=== PATIENT | female | born 1975 | race Hispanic/Latino ===

== ENCOUNTER 2021-03-09 06:10 | Inpatient (IN) | payer OTHER ==
[2021-03-09] MEDS ORDERED: LORazepam 2 MG/ML VIAL ONE (06:27)
--- NOTE | 2021-03-09 06:48 | Emergency Department Report ---
HPI - General Time Seen by Provider: 03/09/21 06:43 - HPI HPI: This is a 45-year-old female presents to the emergency department via EMS from home with the complaint of progressively worsening shortness of breath that has been going on since last night. EMS found the patient to have hypoxia, as low as the 60s. She would not tolerate any mask, so she was given supple mental O2 via nasal cannula. She was given 125 mg of Solu-Medrol, 5 mg of albuterol and she was receiving magnesium upon arrival. The patient is a tobacco smoker. No diagnosed past medical history but does not follow with a primary care physician. No fever, lower extremity swelling, chest pain, nausea, vomiting, but the patient does have diaphoresis. She says that she is vaccinated against COVID-19. No recent travel or sick contacts at home. ED Past Medical Hx - Medications Home Medications: Home Medications Medication Instructions Recorded Confirmed Last Taken Type No Known Home Medications [No 03/09/21 03/09/21 Unknown History Reported Home Medications] ED Review of Systems ROS: Stated complaint: SOB Other details as noted in HPI Comment: All other systems reviewed and negative Constitutional: diaphoresis. denies: fever Eyes: denies: eye pain, vision change Respiratory: cough, orthopnea, shortness of breath, SOB with exertion, SOB at rest, wheezing Cardiovascular: denies: chest pain, edema Gastrointestinal: denies: abdominal pain, vomiting Genitourinary: denies: dysuria, discharge Musculoskeletal: denies: back pain, arthralgia Skin: denies: rash, lesions Neurological: denies: headache, weakness Physical Exam - Physical Exam Physical Exam: GENERAL: The patient is ill-appearing. HENT: Normocephalic. Atraumatic. Patient has moist mucous membranes. EYES: Extraocular motions are intact. NECK: Supple. Trachea is midline. CHEST/LUNGS: Coarse breath sounds and rhonchi heard bilaterally. There is tachypnea, accessory muscle use and conversational dyspnea. There is respiratory distress noted. HEART/CARDIOVASCULAR: Regular. There is mild to moderate tachycardia. There is no murmur. ABDOMEN: Abdomen is soft, nontender. Patient has normal bowel sounds. There is no abdominal distention. SKIN: Skin is warm and dry. NEURO: The patient is awake, alert, and oriented. The patient is cooperative. The patient has no focal neurologic deficits. MUSCULOSKELETAL: There is no tenderness or deformity. There is no limitation range of motion. ED Course - Reevaluation(s) Reevaluation #1: 03/09/21 06:46 When patient arrived we placed a peripheral IV and the patient was given a dose of Ativan. We were able to move from receiving a nebulizer breathing treatment from an apparatus that she puts in her mouth, to a nebulized treatment via mask, to a BiPAP machine. Currently the patient has an oxygen saturation in the high 90s, remains tachycardic, and has tachypnea but it is greatly improved. I spoke to the patient regarding CODE STATUS and the patient says that she can be intubated if it would save her life. I spoke to the patient and let her know that if the BiPAP is not tolerable or fails for some reason then the next step is intubation. ED Medical Decision Making - Lab Data Result diagrams: 03/09/21 06:46 03/09/21 06:46 Labs 03/09/21 03/09/21 03/09/21 06:46 06:46 06:46 WBC 19.1 H RBC 3.86 Hgb 11.4 Hct 35.3 MCV 91 MCH 30 MCHC 32 RDW 13.8 Plt Count 255 Lymph % (Auto) 14.6 [place] % (Auto) 3.8 Eos % (Auto) 0.5 Baso % (Auto) 0.7 Lymph # (Auto) 2.8 [place] # (Auto) 0.7 Eos # (Auto) 0.1 Baso # (Auto) 0.1 Seg Neutrophils % 80.4 H Seg Neutrophils # 15.4 H PT 13.9 INR 1.02 D-Dimer 648.24 H Sodium 139 Potassium 3.3 L Chloride 101.3 Carbon Dioxide 18 L Anion Gap 23 BUN 24 H Creatinine 2.7 H Estimated GFR 19 BUN/Creatinine Ratio 9 Glucose 444 H Calcium 9.0 Total Bilirubin 0.50 AST 20 ALT 18 Alkaline Phosphatase 120 Troponin T 0.258 H* NT-Pro-B Natriuret Pep 9798 H Total Protein 7.2 Albumin 3.8 L Albumin/Globulin Ratio 1.1 Triglycerides 104 Cholesterol 210 H LDL Cholesterol Direct 157 H HDL Cholesterol 42 Cholesterol/HDL Ratio 5.00 - EKG Data -: EKG Interpreted by Me EKG shows normal: sinus rhythm, axis, intervals, QRS complexes (LVH), ST-T waves Rate: tachycardia (112 bpm) - EKG Data When compared to previous EKG there are: previous EKG unavailable Interpretation: other (Sinus tachycardia 112 bpm, normal axis, normal intervals, LVH. No ST elevation DE) - Radiology Data Radiology results: report reviewed CHEST 1 VIEW INDICATION: SOB. COMPARISON: None FINDINGS: Support devices: None. Heart: Within normal limits. Lungs/Pleura: There are patchy lower lung airspace densities, more so at the left lung base. Small left pleural effusion is identified. No pneumothorax. Additional findings: Approximate 3 cm enchondroma in the right humeral neck is noted. IMPRESSION: Lower lung airspace opacities and small left pleural effusion. Atypical pneumonia or viral infection is not ex cluded. - Medical Decision Making This patient presents to the emergency department in respiratory distress with tachypnea, conversational dyspnea and accessory muscle use. There are rhonchi and coarse breath sounds heard on auscultation. Initially the patient would not tolerate anything more than a nasal cannula. We placed an IV and gave the patient a dose of Ativan. We were able to escalate the support up to a mask with nebulizing treatment, a nonrebreather, and then a BiPAP machine. Once the patient was on BiPAP she appeared improved and oxygen went up into the high 90s and respiratory rate and work of breathing decreased. Chest x-ray shows bilateral patchy opacities concerning for pneumonia versus interstitial edema. Patient's labs are very abnormal including a leukocytosis of 19,000, hyperglycemia with a blood sugar of about 450, acute renal failure, elevated troponin, elevated D-dimer level. EKG did not have any morphology consistent with ST elevation myocardial infarction. Patient was given insulin for the hyperglycemia. She was covered with IV antibiotics and blood cultures have been sent. Patient later had a ventilation perfusion scan that was negative for pulmonary embolism. Patient will be admitted to the [facility] and was accepted for admission by the hospitalist service. Critical Care Time: Yes Critical care time in (mins) excluding proc time.: 40 Critical care attestation.: If time is entered above; I have spent that time in minutes in the direct care of this critically ill patient, excluding procedure time. Critical care time was spent on this patient during her initial evaluation, multiple reevaluations, ordering and interpretation of labs and imaging, IV insulin for hyperglycemia, BiPAP management for her hypoxia and respiratory distress, and multiple discussions with the patient. Critical Care Time: 40 minutes ED Disposition Clinical Impression: Acute hypoxemic respiratory failure, Diabetes mellitus, new onset, Hyperglycemia, Acute renal failure, Elevated troponin Disposition: OP ADMIT IP TO THIS HOSP Is pt being admited?: Yes Condition: Serious Time of Disposition: 08:34
[2021-03-09] MEDS ORDERED: LORazepam 2 MG/ML VIAL IV ONE (07:10)
[2021-03-09 07:34] LABS: Basophils # (Auto) 0.1 K/mm3 (0.0-0.1); Basophils % (Auto) 0.7 % (0.0-1.8); Eosinophils # (Auto) 0.1 K/mm3 (0.0-0.4); Eosinophils % (Auto) 0.5 % (0.0-4.3); Hematocrit 35.3 % (30.3-42.9); Hemoglobin 11.4 gm/dl (10.1-14.3); Lymphocytes # (Auto) 2.8 K/mm3 (1.2-5.4); Lymphocytes % (Auto) 14.6 % (13.4-35.0); Mean Corpuscular HGB Conc 32 % (30-34); Mean Corpuscular Volume 91 fl (79-97); Monocytes # (Auto) 0.7 K/mm3 (0.0-0.8); Monocytes % (Auto) 3.8 % (0.0-7.3); Platelet Count 255 K/mm3 (140-440); Red Blood Count 3.86 M/mm3 (3.65-5.03); Red Cell Distribution Width 13.8 % (13.2-15.2)
[2021-03-09 07:44] LABS: INR 1.02 (0.87-1.13)
[2021-03-09] MEDS ORDERED: AZITHROMYCIN/NS 500 MG/250 ML 500 MG/250 ML BAG IV ONE (07:44)
[2021-03-09] MEDS ORDERED: cefTRIAXone/NS 1 GM/50 ML 1 GM/50 ML BAG IV ONE (07:44)
--- NOTE | 2021-03-09 07:45 | XRay Report ---
CHEST 1 VIEW INDICATION: SOB. COMPARISON: None FINDINGS: Support devices: None. Heart: Within normal limits. Lungs/Pleura: There are patchy lower lung airspace densities, more so at the left lung base. Small le ft pleural effusion is identified. No pneumothorax. Additional findings: Approximate 3 cm enchondroma in the right humeral neck is noted. IMPRESSION: Lower lung airspace opacities and small left pleural effusion. Atypical pneumonia or viral infection is not excluded. Signer Name: Seth Stewart Jr, MD Signed: 03/09/2021 7:41 AM Workstation Name: [id number]
[2021-03-09 07:51] LABS: Albumin 3.8 g/dL (3.9-5)
[2021-03-09] MEDS ORDERED: INSULIN REGULAR, HUMAN 100 UNITS/1 ML IV ONE (07:56)
[2021-03-09] MEDS: POTASSIUM CHLORIDE 10 MEQ 10 MEQ/100 ML BAG IV SCH ×2 (08:33→09:47)
[2021-03-09 09:07] LABS: ABG Base Excess -7.5 mmol/L (-2.0-3.0); ABG HCO3 17.7 mmol/L (20.0-26.0); ABG Methemoglobin 0.5 % (0.0-1.5); ABG Oxygen Saturation 99.5 % (95.0-99.0); ABG PCO2 34.8 mm Hg; ABG PH 7.324 pH Units (7.350-7.450)
[2021-03-09 09:10] LABS: ABG PO2 298.4 mm Hg (80.0-90.0)
--- NOTE | 2021-03-09 09:47 | History and Physical Report ---
History of Present Illness Date of examination: 03/09/21 Date of admission: 03/09/2021 Chief complaint: Worsening shortness of breath for the last 2 3 days worse since last night History of present illness: 45-year-old female patient with no significant past medical history except for ongoing tobacco use presented to the emergency room with worsening shortness of breath of 2 to 3 days duration worse since last night, as per ER note patient was found to be in severe hypoxia with O2 sats in 60s Patient received supplemental oxygen via nasal cannula , high-dose Solu-Medrol, magnesium and albuterol nebulizer. Patient has ongoing tobacco use for many years, does not see any physician, not on any medications Initial evaluation in the ED , show severe hypoxemia requiring BiPAP, very high blood sugars, acute kidney injury, elevated BNP and positive troponins Patient's oxygen saturations slowly but gradually improved, currently on Ventimask saturating more than 95% Patient complains of shortness of breath intermittent Denies chest pain Denies nausea vomiting or abdominal pain Patient denies having the symptoms in the past Denies orthopnea or paroxysmal nocturnal dyspnea Chest x-ray bilateral basilar opacities/pneumonia versus CHF Elevated D-dimers, VQ scan low probability for PE. Past History Past Medical History: No medical history, other (Patient denies any medical history). denies: diabetes, hypertension Past Surgical History: No surgical history, Other (Denies any surgical history) Social history: smoking. denies: alcohol abuse, prescription drug abuse Family history: hypertension Medications and Allergies Allergies Allergy/AdvReac Type Severity Reaction Status Date / Time No Known Allergies Allergy Verified 03/09/21 06:48 Home Medications Medication Instructions Recorded Confirmed Last Taken Type No Known Home Medications [No 03/09/21 03/09/21 Unknown History Reported Home Medications] Active Meds: Active Medications Potassium Chloride (Kcl 10meq/100ml) 10 meq in 100 mls @ 100 mls/hr IV Q1H SHAKIRA Stop: 03/09/21 10:59 Last Admin: 03/09/21 08:33 Dose: 100 mls/hr Documented by: Review of Systems Constitutional: weakness, other (Shortness of breath), no weight loss, no weight gain, no fever, no chills Ears, nose, mouth and throat: no nasal congestion, no nasal discharge Cardiovascular: edema, shortness of breath, dyspnea on exertion, no chest pain, no orthopnea, no palpitations Respiratory: shortness of breath, no cough, no hemoptysis Gastrointestinal: no abdominal pain, no nausea, no vomiting Genitourinary Female: no flank pain, no dysuria Musculoskeletal: no myalgias, no arthritis Integumentary: no rash, no lesions Neurological: no paralysis, no weakness, no parathesias Psychiatric: no anxiety, no depression Endocrine: no cold intolerance, no heat intolerance, no polydipsia, no polyuria Hematologic/Lymphatic: no easy bruising, no easy bleeding Allergic/Immunologic: no urticaria, no allergic rhinitis Exam - Constitutional Vitals: Temp Pulse Resp BP Pulse Ox 123 H 34 H 209/92 70 L 03/09/21 06:51 03/09/21 06:51 03/09/21 06:51 03/09/21 06:51 General appearance: Present: mild distress, well-nourished, obese - EENT Eyes: Present: PERRL, EOM intact - Neck Neck: Present: supple, normal ROM - Respiratory Respiratory effort: normal Respiratory: bilateral: diminished, rales, negative: rhonchi, wheezing - Cardiovascular Rhythm: regular Heart Sounds: Present: S1 & S2 - Extremities Extremities: no ischemia Extremity abnormal: edema (Trace edema) - Abdominal General gastrointestinal: Present: soft, non-tender, non-distended, normal bowel sounds - Integumentary Integumentary: Present: clear, warm - Musculoskeletal Musculoskeletal: strength equal bilaterally - Psychiatric Psychiatric: appropriate mood/affect, cooperative - Neurologic Neurologic: CNII-XII intact, moves all extremities HEART Score - HEART Score Troponin: Troponin T 0.258 ng/mL (0.00-0.029) H* 03/09/21 06:46 Results - Labs CBC & Chem 7: 03/09/21 06:46 03/09/21 06:46 Labs: Abnormal lab results 03/09/21 03/09/21 03/09/21 Range/Units 06:46 06:46 06:46 WBC 19.1 H (4.5-11.0) K/mm3 Seg Neutrophils % 80.4 H (40.0-70.0) % Seg Neutrophils # 15.4 H (1.8-7.7) K/mm3 D-Dimer 648.24 H (0-234) ng/mlDDU ABG pH (7.350-7.450) pH Units ABG pO2 (80.0-90.0) mm Hg ABG HCO3 (20.0-26.0) mmol/L ABG O2 Saturation (95.0-99.0) % ABG Base Excess (-2.0-3.0) mmol/L ABG Hemoglobin (12.0-16.0) gm/dl Potassium 3.3 L (3.6-5.0) mmol/L Carbon Dioxide 18 L (22-30) mmol/L BUN 24 H (7-17) mg/dL Creatinine 2.7 H (0.6-1.2) mg/dL Glucose 444 H (65-100) mg/dL Troponin T 0.258 H* (0.00-0.029) ng/mL NT-Pro-B Natriuret Pep 9798 H (0-450) pg/mL Albumin 3.8 L (3.9-5) g/dL Cholesterol 210 H (50-199) mg/dL LDL Cholesterol Direct 157 H (50-130) mg/dL 03/09/21 Range/Units 09:04 WBC (4.5-11.0) K/mm3 Seg Neutrophils % (40.0-70.0) % Seg Neutrophils # (1.8-7.7) K/mm3 D-Dimer (0-234) ng/mlDDU ABG pH 7.324 L (7.350-7.450) pH Units ABG pO2 298.4 H (80.0-90.0) mm Hg ABG HCO3 17.7 L (20.0-26.0) mmol/L ABG O2 Saturation 99.5 H (95.0-99.0) % ABG Base Excess -7.5 L (-2.0-3.0) mmol/L ABG Hemoglobin 11.2 L (12.0-16.0) gm/dl Potassium (3.6-5.0) mmol/L Carbon Dioxide (22-30) mmol/L BUN (7-17) mg/dL Creatinine (0.6-1.2) mg/dL Glucose (65-100) mg/dL Troponin T (0.00-0.029) ng/mL NT-Pro-B Natriuret Pep (0-450) pg/mL Albumin (3.9-5) g/dL Cholesterol (50-199) mg/dL LDL Cholesterol Direct (50-130) mg/dL Assessment and Plan --Acute hypoxic respiratory failure; requiring BiPAP Probably secondary pneumonia versus CHF or both Oxygen titrate O2 sats to more than 90% Treat the underlying cause empiric antibiotics Bronchodilators and supportive care --Non-ST elevation FL; Serial cardiac enzymes, serial EKG Echocardiogram for LV function ejection fraction --Elevated BNP; possible CHF Unknown ejection fraction, echocardiogram Cardiology evaluation if needed --New onset diabetes mellitus;/hyperglycemia Accu-Chek sliding scale coverage ADA diet Long-acting insulin Novolin 70/30 A1c 7.8 Diabetic education, diabetic diet education Home health nurse on discharge for disease monitoring --Obesity; BMI 34.8 Patient needs weight reduction when medically stable Outpatient pulmonary evaluation/sleep study to evaluate for BERTRAND --Elevated D-dimers; VQ scan low probability for PE Check lower extremity venous Doppler to evaluate for DVT Continue supportive care --PUI/isolation, check sinha PCr --Acute kidney injury; secondary to ATN Partly vasomotor nephropathy, gentle hydration Monitor renal function, avoid nephrotoxins Nephrology consult --Leukocytosis; Secondary to underlying pneumonia Continue antibiotics and follow cultures --Ongoing tobacco use; Smoking cessation counseling done, extensively advised risks and consequences of long-term smoking advised the patient and strongly advised to quit Advised nicotine patch as needed --DVT prophylaxis; Lovenox We will closely monitor patient and adjust the management as needed
[2021-03-09] MEDS ORDERED: INSULIN LISPRO 100 UNIT/ML SUB-Q NR (09:50)
[2021-03-09] MEDS ORDERED: ALBUTEROL 2.5 MG/3 ML NEBU IH PRN (12:00)
--- NOTE | 2021-03-09 13:05 | Nuclear Medicine Report ---
NUCLEAR MEDICINE PERFUSION SCAN INDICATION: SOB, elevated dimer CORRELATION: AP chest performed earlier today RADIOPHARMACEUTICAL: Perfusion: 5.3 mCi Tc-99m MAA given IV FINDINGS: Perfusion images show symmetric and uniform radiotracer distribution throughout bilateral lung zones with no evidence of unmatched segmental perfusion defects. Normal cardiac silhouette. IMPRESSION: Low probability perfusion scan for pulmonary embolism. Signer Name: Seth Stewart Jr, MD Signed: 03/09/2021 1:00 PM Workstation Name: [id number]
[2021-03-09] MEDS ORDERED: FUROSEMIDE 40 MG/4 ML INJ IV SCH (14:00)
[2021-03-09] MEDS ORDERED: SODIUM CHLORIDE 0.9% 1000 ML 1,000 ML IV SCH (14:00)
[2021-03-09] MEDS ORDERED: METOPROLOL TARTRATE 25 MG TAB PO SCH (14:00)
[2021-03-09] MEDS ORDERED: INSULIN NPH/REGULAR 70/30 INJ SUB-Q ONE (14:22)
[2021-03-09] MEDS: INSULIN NPH/REGULAR 70/30 INJ SUB-Q SCH ×2 (14:28→20:16)
--- NOTE | 2021-03-09 15:37 | Consultation ---
History of Present Illness Consult date: 03/09/21 Requesting physician: RICHARD PLAZA Consult reason: elevated troponin History of present illness: This patient is a 45-year-old female with a significant history of tobacco use (half pack per day). She is previously unknown to our practice and is not followed by cardiology or primary care. Patient presents to [facility] ER via EMS after acute shortness of breath. EMS reports initial SPO2 of 60%. Patient was subsequently treated with CPAP, magnesium gtt. on presentation to ED patient was also found to have hypertensive urgency (209/90) blood glucose 450, elevated D-dimer, elevated BNP, elevated creatinine, elevated troponin. Shortness of breath occurred acutely this a.m. Patient denies orthopnea or PND. Cardiology is consulted for elevated troponins. At time of interview patient has significant relief of shortness of breath and is only requiring supplemental O2 via nasal cannula. Patient denies any chest pain, weakness, dizziness, abdominal pain, nausea/vomiting/diarrhea, recent illness or known exposure. Patient also denies any EtOH or drug use. Patient takes no home medications and is not followed by any physicians and takes no home medications. She denies previous hospitalizations or surgeries. Patient specifically denies any history of prior [place], cardiomyopathy, pulmonary embolism, CVA, DVT, kidney or liver pathology. Of note patient has received [employer] Covid vaccine on 02/16/2021. D-dimer is elevated. VQ scan is low probability for PTE. Past History Past Medical History: No medical history, other (See HPI) Past Surgical History: No surgical history, Other (Denies any surgical history) Social history: smoking. denies: alcohol abuse, prescription drug abuse Family history: hypertension Medications and Allergies Allergies Allergy/AdvReac Type Severity Reaction Status Date / Time No Known Allergies Allergy Verified 03/09/21 06:48 Home Medications Medication Instructions Recorded Confirmed Last Taken Type No Known Home Medications [No 03/09/21 03/09/21 Unknown History Reported Home Medications] Active Meds: Active Medications Albuterol (Albuterol 2.5 Mg/3 Ml Nebu) 2.5 mg IH Q4HRT PRN PRN Reason: Shortness Of Breath Aspirin (Aspirin Ec 325 Mg Tab) 325 mg PO QDAY SHAKIRA Atorvastatin Calcium (Atorvastatin 20 Mg Tab) 20 mg PO QHS SHAKIRA Furosemide (Furosemide 40 Mg/4 Ml Inj) 40 mg IV ONCE SHAKIRA Stop: 03/09/21 17:00 Furosemide (Furosemide 40 Mg/4 Ml Inj) 40 mg IV QDAY [facility] Azithromycin (Zithromax/Ns) 500 mg in 250 mls @ 250 mls/hr IV Q24H [facility] Ceftriaxone Sodium (Rocephin/Ns 1 Gm/50 Ml) 1 gm in 50 mls @ 100 mls/hr IV Q24H [facility]; Protocol Insulin Human Isoph/Insulin Regular (Insulin Nph/Regular 70/30 Inj) 10 unit SUB-Q BIDDIAB [facility] Last Admin: 03/09/21 14:28 Dose: 10 unit Documented by: Metoprolol Tartrate (Metoprolol Tartrate 25 Mg Tab) 12.5 mg PO BID [facility] Last Admin: 03/09/21 14:50 Dose: 12.5 mg Documented by: Nicotine (Nicotine 14 Mg/24 Hr Patch) 14 mg TD QDAY [facility] Review of Systems Constitutional: no weight loss, no weight gain, no fever, no chills, no sweats, no night sweats, no fatigue, no weakness, no malaise, no lethargy Ears, nose, mouth and throat: no ear pain, no ear discharge, no nose pain, no nasal congestion, no nasal discharge Cardiovascular: shortness of breath, no chest pain, no orthopnea, no palpitations, no rapid/irregular heart beat, no edema, no syncope, no li ghtheadedness, no dyspnea on exertion, no paroxysmal nocturnal dyspnea, no claudication, no high blood pressure, no leg edema Respiratory: shortness of breath, no cough, no cough with sputum, no hemoptysis, no dyspnea on exertion Gastrointestinal: no abdominal pain, no nausea, no vomiting, no diarrhea, no constipation, no change in bowel habits Genitourinary Female: no pelvic pain, no flank pain, no urinary frequency Musculoskeletal: no neck stiffness, no neck pain, no shooting arm pain, no arm numbness/tingling, no low back pain, no shooting leg pain Integumentary: no rash, no pruritis, no redness, no sores, no wounds Neurological: no head injury, no paralysis, no weakness, no parathesias, no numbness, no tingling, no seizures, no syncope Psychiatric: no anxiety Endocrine: no cold intolerance, no heat intolerance Hematologic/Lymphatic: no easy bruising, no easy bleeding Allergic/Immunologic: no urticaria Physical Examination Last Vital Signs Temp Pulse 103 H 03/09/21 14:50 Resp 21 03/09/21 12:16 BP 162/91 03/09/21 14:50 Pulse Ox 100 03/09/21 12:16 General appearance: mild distress HEENT: Positive: PERRL, Normocephaly, Mucus Membranes Moist Neck: Positive: neck supple, trachea midline Cardiac: Positive: Regular Rhythm, S1/S2 Lungs: Positive: Decreased Breath Sounds Neuro: Positive: Grossly Intact Abdomen: Positive: Unremarkable, Soft Skin: Negative: Rash, Wound Extremities: Present: upper extr. pulses, lower extr. pulses, edema (Trace bilateral lower extremity edema) Results 03/09/21 06:46 03/09/21 06:46 Cardiac Enzymes 03/09/21 Range/Units 06:46 AST 20 (5-40) units/L Coagulation 03/09/21 Range/Units 06:46 PT 13.9 (12.2-14.9) Sec. INR 1.02 (0.87-1.13) Lipids 03/09/21 Range/Units 06:46 Triglycerides 104 (2-149) mg/dL Cholesterol 210 H (50-199) mg/dL HDL Cholesterol 42 (40-59) mg/dL Cholesterol/HDL Ratio 5.00 % CBC 03/09/21 Range/Units 06:46 WBC 19.1 H (4.5-11.0) K/mm3 RBC 3.86 (3.65-5.03) M/mm3 Hgb 11.4 (10.1-14.3) gm/dl Hct 35.3 (30.3-42.9) % Plt Count 255 (140-440) K/mm3 Lymph # (Auto) 2.8 (1.2-5.4) K/mm3 [place] # (Auto) 0.7 (0.0-0.8) K/mm3 Eos # (Auto) 0.1 (0.0-0.4) K/mm3 Baso # (Auto) 0.1 (0.0-0.1) K/mm3 Comprehensive Metabolic Panel 03/09/21 Range/Units 06:46 Sodium 139 (137-145) mmol/L Potassium 3.3 L (3.6-5.0) mmol/L Chloride 101.3 (98-107) mmol/L Carbon Dioxide 18 L (22-30) mmol/L BUN 24 H (7-17) mg/dL Creatinine 2.7 H (0.6-1.2) mg/dL Glucose 444 H (65-100) mg/dL Calcium 9.0 (8.4-10.2) mg/dL AST 20 (5-40) units/L ALT 18 (7-56) units/L Alkaline Phosphatase 120 (35-129) units/L Total Protein 7.2 (6.3-8.2) g/dL Albumin 3.8 L (3.9-5) g/dL - Imaging and Cardiology Echo: pending EKG: report reviewed, image reviewed EKG interpretations - Telemetry EKG Rhythm: Sinus Tachycardia - EKG Sinus rhythms and dysrhythmias: sinus tachycardia Assessment and Plan Acute respiratory failure with hypoxia * D-dimer is elevated, VQ scan has low suspicion for PTE * Leukocytosis. Patient received [employer] vaccine on 02/16/2021. Patient is admitted as a Covid PUI, PCR is pending. Blood cultures, procalcitonin is pending. Patient has been started on empiric antibiotics. * CXR reviewed: Mild pulmonary edema. Agree with Lasix 40 mg IV daily pending nephrology recommendations. NSTEMI suspect type II in setting of JOSE R and hyperglycemia * Patient denies any chest pain. Twelve-lead reviewed sinus tach 112 with suspected LVH, no acute ischemic changes. Troponin is elevated x1. Continue to trend CE's * Echocardiogram is pending * Will plan for ischemic eval once patient is hemodynamically stabilized. * Initiate ASA 325 mg daily, atorvastatin 80 mg nightly. * Optimize antihypertensive regimen: Initiate metoprolol 25 mg twice daily. No KRUNAL/ARB in setting of JOSE R. Tobacco use * Cessation encouraged DVT prophylaxis * Heparin SQ We will follow This patient was seen in conjunction with Dr Vann who agrees with this assessment and plan of care - Patient Problems (1) Acute kidney injury Current Visit: Yes Status: Acute (2) NSTEMI (non-ST elevated myocardial infarction) Current Visit: Yes Status: Acute (3) Tobacco use Current Visit: Yes Status: Chronic (4) Leukocytosis Current Visit: Yes Status: Acute (5) Acute hypoxemic respiratory failure Current Visit: Yes Status: Acute (6) Hyperglycemia Current Visit: Yes Status: Acute
[2021-03-09] MEDS: ASPIRIN EC 325 MG TAB PO SCH (16:12)
--- NOTE | 2021-03-09 16:54 | Progress Note ---
Assessment and Plan 1. Acute kidney injury vs CKD: Patient presented with elevated creatinine level. Baseline renal function is unknown. Urine studies and Renal US ordered. Monitor renal function. Renal prognosis is guarded. Avoid nephrotoxic agents. Meds dosage based on GFR. 2. FEN: Hypokalemia, replete K. Metabolic acidosis, monitor. Monitor lytes. 3. Acute respiratory failure with hypoxia: Pneumonia or CHF or both. Elevated D-dimer, VQ scan low probability for PE. Requiring BiPAP. Covid test ordered. Empiric antibiotics, bronchodilators and supportive care. 4. Non-ST elevation [place]: Trend Troponin. Echocardiogram for LV function ejection fraction. Cards consulted. 5. New onset diabetes mellitus / hyperglycemia: Accu-Chek, SSI, Long-acting insulin Novolin 70/30. A1c 7.8. ADA diet. 6. Uncontrolled Hypertension: Monitor BP. Adjust meds. Subjective: Patient was not examined today. However the examination findings from other providers noted. The current and previous medical records are reviewed in detail as are laboratory and imaging data reviewed when appropriate. Medications being given are also reviewed. In addition the case has been discussed with the attending hospitalist and the nurse when needed. New renal recommendations as above. Examination: Subjective Date of service: 03/09/21 Interval history: HPI: The patient is a 45 YO female patient with history significant for ongoing tobacco use who presented to [facility] ED with worsening shortness of breath of 2 to 3 days duration worse since last night. Pt denies chest pain, nausea, vomiting, abdominal pain, orthopnea or PND. She was found to be in severe hypoxia with O2 sats in 60s. Patient received supplemental oxygen, high-dose So herrera-Medrol, magnesium and albuterol nebulizer. Patient has not seen any physician and not on any medication. Initial evaluation in the ED showed severe hypoxemia requiring BiPAP, very high blood sugars, acute kidney injury, elevated BNP and elevated troponins. Chest x-ray showed bilateral basilar opacities/pneumonia versus CHF and VQ scan showed low probability for PE. Nephrology was consulted for evaluation and treatment of JOSE R. Objective - Vital Signs Vital signs: Vital Signs - 12hr 03/09/21 03/09/21 03/09/21 06:24 06:30 06:45 Pulse Rate 134 H 130 H Respiratory 35 H 35 H Rate Blood Pressure 189/108 209/92 O2 Sat by Pulse 72 L 72 L 90 Oximetry 03/09/21 03/09/21 03/09/21 06:51 07:00 07:30 Pulse Rate 123 H 117 H 109 H Respiratory 34 H 33 H 31 H Rate Blood Pressure 209/92 209/92 170/97 O2 Sat by Pulse 70 L 100 100 Oximetry 03/09/21 03/09/21 03/09/21 08:20 09:00 09:30 Pulse Rate 105 H 113 H 108 H Respiratory 29 H 23 28 H Rate Blood Pressure 170/131 166/75 156/80 O2 Sat by Pulse 100 100 100 Oximetry 03/09/21 03/09/21 03/09/21 11:00 11:30 12:16 Pulse Rate 99 H 104 H 100 H Respiratory 23 27 H 21 Rate Blood Pressure 166/87 163/91 163/83 O2 Sat by Pulse 100 100 100 Oximetry 03/09/21 14:50 Pulse Rate 103 H Respiratory Rate Blood Pressure 162/91 O2 Sat by Pulse Oximetry - Lab 03/09/21 06:46 03/09/21 06:46 Most recent lab results ABG pH 7.324 pH Units (7.350-7.450) L 03/09/21 09:04 ABG pCO2 34.8 mm Hg 03/09/21 09:04 ABG pO2 298.4 mm Hg (80.0-90.0) H 03/09/21 09:04 ABG HCO3 17.7 mmol/L (20.0-26.0) L 03/09/21 09:04 ABG O2 Saturation 99.5 % (95.0-99.0) H 03/09/21 09:04 Calcium 9.0 mg/dL (8.4-10.2) 03/09/21 06:46 Medications & Allergies - Medications Allergies/Adverse Reactions: Allergies No Known Allergies Allergy (Verified 03/09/21 06:48) Home Medications: Home Medications Medication Instructions Recorded Confirmed Last Taken Type No Known Home Medications [No 03/09/21 03/09/21 Unknown History Reported Home Medications] Active Medications: Generic Name Dose Route Start Last Admin Trade Name Freq PRN Reason Stop Dose Admin Albuterol 2.5 mg 03/09/21 12:00 Albuterol 2.5 Mg/3 Ml Nebu IH Q4HRT PRN Shortness Of Breath Aspirin 325 mg 03/09/21 15:00 07/07/21 16:12 Aspirin Ec 325 Mg Tab PO 325 mg QDAY SHAKIRA Administration Atorvastatin Calcium 80 mg 03/09/21 22:00 Atorvastatin 40 Mg Tab PO QHS SHAKIRA Furosemide 40 mg 03/09/21 14:00 Furosemide 40 Mg/4 Ml Inj IV 03/09/21 17:00 ONCE SHAKIRA Furosemide 40 mg 03/10/21 10:00 Furosemide 40 Mg/4 Ml Inj IV QDAY [facility] Azithromycin 500 mg in 250 mls @ 250 mls/hr 03/10/21 08:00 Zithromax/Ns IV Q24H [facility] Ceftriaxone Sodium 1 gm in 50 mls @ 100 mls/hr 03/10/21 10:00 Rocephin/Ns 1 Gm/50 Ml IV Q24H [facility] Protocol Insulin Human Isoph/Insulin Regular 10 unit 03/09/21 14:30 03/09/21 14:28 Insulin Nph/Regular 70/30 Inj SUB-Q 10 unit BIDDIAB SHAKIRA Administration Metoprolol Tartrate 25 mg 03/09/21 16:58 Metoprolol Tartrate 25 Mg Tab PO BID SHAKIRA Nicotine 14 mg 03/10/21 10:00 Nicotine 14 Mg/24 Hr Patch TD QDAY SHAKIRA
[2021-03-09] MEDS: METOPROLOL TARTRATE 25 MG TAB PO SCH ×2 (17:22→23:02)
--- NOTE | 2021-03-09 18:06 | Electrocardiograph Report ---
[facility] Test Date: 2021-03-09 Test Time: 07:23:05 Pat Name: RONEL MONROY Department: Room: [facility] Gender: F Java Sql Developer: EM : 1975 Requested By: MARIO LEAL Order Number: [id number] Reading MD: David Ramirez Measurements Intervals Kress Rate: 112 P: 54 DC: 144 QRS: 31 QRSD: 77 T: 162 QT: 356 QTc: 486 Interpretive Statements Sinus tachycardia Probable LVH with secondary repol abnrm No previous ECG available for comparison Electronically Signed On 03-09-2021 18:06:14 EDT by David Ramirez
[2021-03-09] MEDS: INSULIN LISPRO 100 UNIT/ML SUB-Q SCH ×2 (19:03→23:03)
[2021-03-09] MEDS ORDERED: carvediloL 6.25 MG TAB PO SCH (22:00)
--- NOTE | 2021-03-10 07:40 | Progress Note ---
Assessment and Plan Assessment and plan: Today's labs are not done yet, we will follow the labs when available --Acute hypoxic respiratory failure; requiring BiPAP: BiPAP on admission ,probably secondary pneumonia versus CHF or both Oxygen titrate O2 sats to more than 90% Significantly improved, treat the underlying cause. Home O2 evaluation at discharge --Non-ST elevation IL: Serial cardiac enzymes, serial EKG Echocardiogram for LV function ejection fraction Cardiology evaluation noted and appreciated Continue aspirin, beta-blockers, nitrates and statins --Possible CHF: Unknown ejection fraction, follow echocardiogram for LV function Diuretics and beta-blockers, input output monitoring Low-sodium diet and fluid restriction --New onset diabetes mellitus: Accu-Chek sliding scale coverage ADA diet Long-acting insulin Novolin 70/30 A1c 7.8 Uncontrolled, increase Novolin 70/30 to 14 units twice a day Diabetic education, diabetic diet education Home health nurse on discharge for disease monitoring. --Dyslipidemia: Low-cholesterol diet, statin Exercise and weight reduction -Obesity; BMI 34.8: Patient needs weight reduction when medically stable Outpatient pulmonary evaluation/sleep study to evaluate for BERTRAND --Elevated D-dimers: VQ scan low probability for PE Check lower extremity venous Doppler to evaluate for DVT --PUI; rule out COVID-19: Isolation precautions, check sinha PCR --Acute kidney injury: Secondary to ATN, Partly vasomotor nephropathy, Monitor renal function, avoid nephrotoxins Nephrology evaluation noted and appreciated --leukocytosis Secondary to underlying pneumonia Continue antibiotics and follow cultures -- Ongoing tobacco use Smoking cessation counseling done, extensively discussed risks and consequences of long-term smoking advised the patient to quit Advised nicotine patch as needed --DVT prophylaxis: Lovenox/SCDs We will closely monitor patient and adjust the management as needed Consults and recommendations noted and appreciated History Interval history: I seen and examined the patient at the bedside this morning Patient's chart and medications reviewed Patient is anxious to go home says she feels better Denies any chest pain or shortness of breath Vital signs reviewed Hospitalist Physical - Constitutional Vitals: Temp Pulse Resp BP Pulse Ox 98 H 18 127/75 98 03/09/21 23:02 03/10/21 00:14 03/09/21 22:03 03/09/21 22:03 General appearance: Present: mild distress, well-nourished, other (Anxious to go home) - EENT Eyes: Present: PERRL, EOM intact - Neck Neck: Present: supple, normal ROM - Respiratory Respiratory effort: normal Respiratory: bilateral: diminished, negative: rales, rhonchi - Cardiovascular Rhythm: regular Heart Sounds: Present: S1 & S2 - Extremities Extremities: no ischemia, No edema - Abdominal General gastrointestinal: soft, non-tender, non-distended, normal bowel sounds - Integumentary Integumentary: Present: clear, warm - Psychiatric Psychiatric: appropriate mood/affect, cooperative - Neurologic Neurologic: CNII-XII intact, moves all extremities HEART Score - HEART Score Troponin: Troponin T 0.403 ng/mL (0.00-0.029) H* D 03/09/21 16:54 Results - Labs CBC & Chem 7: 03/09/21 06:46 03/10/21 07:22 Labs: Laboratory Last Values WBC 19.1 K/mm3 (4.5-11.0) H 03/09/21 06:46 RBC 3.86 M/mm3 (3.65-5.03) 03/09/21 06:46 Hgb 11.4 gm/dl (10.1-14.3) 03/09/21 06:46 Hct 35.3 % (30.3-42.9) 03/09/21 06:46 MCV 91 fl (79-97) 03/09/21 06:46 MCH 30 pg (28-32) 03/09/21 06:46 MCHC 32 % (30-34) 03/09/21 06:46 RDW 13.8 % (13.2-15.2) 03/09/21 06:46 Plt Count 255 K/mm3 (140-440) 03/09/21 06:46 Lymph % (Auto) 14.6 % (13.4-35.0) 03/09/21 06:46 [place] % (Auto) 3.8 % (0.0-7.3) 03/09/21 06:46 Eos % (Auto) 0.5 % (0.0-4.3) 03/09/21 06:46 Baso % (Auto) 0.7 % (0.0-1.8) 03/09/21 06:46 Lymph # (Auto) 2.8 K/mm3 (1.2-5.4) 03/09/21 06:46 [place] # (Auto) 0.7 K/mm3 (0.0-0.8) 03/09/21 06:46 Eos # (Auto) 0.1 K/mm3 (0.0-0.4) 03/09/21 06:46 Baso # (Auto) 0.1 K/mm3 (0.0-0.1) 03/09/21 06:46 Seg Neutrophils % 80.4 % (40.0-70.0) H 03/09/21 06:46 Seg Neutrophils # 15.4 K/mm3 (1.8-7.7) H 03/09/21 06:46 PT 13.9 Sec. (12.2-14.9) 03/09/21 06:46 INR 1.02 (0.87-1.13) 03/09/21 06:46 D-Dimer 648.24 ng/mlDDU (0-234) H 03/09/21 06:46 ABG pH 7.324 pH Units (7.350-7.450) L 03/09/21 09:04 ABG pCO2 34.8 mm Hg 03/09/21 09:04 ABG pO2 298.4 mm Hg (80.0-90.0) H 03/09/21 09:04 ABG HCO3 17.7 mmol/L (20.0-26.0) L 03/09/21 09:04 ABG O2 Saturation 99.5 % (95.0-99.0) H 03/09/21 09:04 ABG O2 Content 16.1 (0.0-44) 03/09/21 09:04 ABG Base Excess -7.5 mmol/L (-2.0-3.0) L 03/09/21 09:04 ABG Hemoglobin 11.2 gm/dl (12.0-16.0) L 03/09/21 09:04 ABG Carboxyhemoglobin 1.3 % (0.0-5.0) 03/09/21 09:04 ABG Methemoglobin 0.5 % (0.0-1.5) 03/09/21 09:04 Oxyhemoglobin 97.6 % (95.0-99.0) 03/09/21 09:04 FiO2 100 % 03/09/21 09:04 Sodium 139 mmol/L (137-145) 03/09/21 06:46 Potassium 3.3 mmol/L (3.6-5.0) L 03/09/21 06:46 Chloride 101.3 mmol/L (98-107) 03/09/21 06:46 Carbon Dioxide 18 mmol/L (22-30) L 03/09/21 06:46 Anion Gap 23 mmol/L 03/09/21 06:46 BUN 24 mg/dL (7-17) H 03/09/21 06:46 Creatinine 2.7 mg/dL (0.6-1.2) H 03/09/21 06:46 Estimated GFR 19 ml/min 03/09/21 06:46 BUN/Creatinine Ratio 9 % 03/09/21 06:46 Glucose 444 mg/dL (65-100) H 03/09/21 06:46 POC Glucose 246 mg/dL (70-105) H 03/09/21 22:06 Hemoglobin A1c 7.8 % (4-6) H 03/09/21 10:13 Calcium 9.0 mg/dL (8.4-10.2) 03/09/21 06:46 Total Bilirubin 0.50 mg/dL (0.1-1.2) 03/09/21 06:46 AST 20 units/L (5-40) 03/09/21 06:46 ALT 18 units/L (7-56) 03/09/21 06:46 Alkaline Phosphatase 120 units/L (35-129) 03/09/21 06:46 Total Creatine Kinase 149 units/L (30-135) H 03/09/21 16:54 CK-MB (CK-2) 10.0 ng/mL (0.0-4.0) H 03/09/21 16:54 CK-MB (CK-2) Rel Index 6.7 (0-4) H 03/09/21 16:54 Troponin T 0.403 ng/mL (0.00-0.029) H* D 03/09/21 16:54 NT-Pro-B Natriuret Pep 9798 pg/mL (0-450) H 03/09/21 06:46 Total Protein 7.2 g/dL (6.3-8.2) 03/09/21 06:46 Albumin 3.8 g/dL (3.9-5) L 03/09/21 06:46 Albumin/Globulin Ratio 1.1 % 03/09/21 06:46 Triglycerides 104 mg/dL (2-149) 03/09/21 06:46 Cholesterol 210 mg/dL (50-199) H 03/09/21 06:46 LDL Cholesterol Direct 157 mg/dL (50-130) H 03/09/21 06:46 HDL Cholesterol 42 mg/dL (40-59) 03/09/21 06:46 Cholesterol/HDL Ratio 5.00 % 03/09/21 06:46 Microbiology: Microbiology 03/09/21 10:13 Peripheral/Venous Blood Culture - Preliminary Culture in Progress 03/09/21 10:13 Peripheral/Venous Blood Culture - Preliminary Culture in Progress German/IV: Voiding Method Toilet Active Medications - Current Medications Current Medications: Generic Name Dose Route Start Last Admin Trade Name Freq PRN Reason Stop Dose Admin Albuterol 2.5 mg 03/09/21 12:00 Albuterol 2.5 Mg/3 Ml Nebu IH Q4HRT PRN Shortness Of Breath Aspirin 325 mg 03/09/21 15:00 03/09/21 16:12 Aspirin Ec 325 Mg Tab PO 325 mg QDAY SHAKIRA Administration Atorvastatin Calcium 80 mg 03/09/21 22:00 03/09/21 23:01 Atorvastatin 40 Mg Tab PO 80 mg QHS SHAKIRA Administration Furosemide 40 mg 03/10/21 10:00 Furosemide 40 Mg/4 Ml Inj IV QDAY [facility] Azithromycin 500 mg in 250 mls @ 250 mls/hr 03/10/21 08:00 Zithromax/Ns IV Q24H [facility] Ceftriaxone Sodium 1 gm in 50 mls @ 100 mls/hr 03/10/21 10:00 Rocephin/Ns 1 Gm/50 Ml IV Q24H [facility] Protocol Insulin Human Isoph/Insulin Regular 14 unit 03/10/21 08:00 Insulin Nph/Regular 70/30 Inj SUB-Q BIDDIAB SHAKIRA Insulin Human Lispro 0 unit 03/09/21 18:30 03/09/21 23:03 Insulin Lispro 100 Unit/Ml SUB-Q 4 unit ACHS [facility] Administration Protocol Metoprolol Tartrate 25 mg 03/09/21 16:58 03/09/21 23:02 Metoprolol Tartrate 25 Mg Tab PO 25 mg BID SHAKIRA Administration Nicotine 14 mg 03/10/21 10:00 Nicotine 14 Mg/24 Hr Patch TD QDAY SHAKIRA
[2021-03-10] MEDS ORDERED: AZITHROMYCIN/NS 500 MG/250 ML 500 MG/250 ML BAG IV SCH (08:00)
[2021-03-10 08:21] LABS: Calcium 9.1 mg/dL (8.4-10.2)
[2021-03-10] MEDS ORDERED: MORPHINE 2 MG/1 ML INJ IV PRN (09:00)
[2021-03-10] MEDS ORDERED: NITROGLYCERIN 0.4 MG TAB SUBL SL PRN (09:00)
--- NOTE | 2021-03-10 09:40 | Ultrasound Report ---
ULTRASOUND RENAL INDICATION / CLINICAL INFORMATION: Acute renal failure.. COMPARISON: None available. FINDINGS: RIGHT KIDNEY: Size (in cm): 9.7 - Echogenicity: Normal. - Cortical Thickness: Normal. - Hydronephrosis: None. - Cyst or mass: No significant abnormality. - Stones: None seen. LEFT KIDNEY: Size (in cm): 9.5 - Echogenicity: Normal. - Cortical Thickness: Normal. - Hydronephrosis: None. - Cyst or mass: No significant abnormality. - Stones: None seen. URINARY BLADDER: Not imaged FREE FLUID: None. ADDITIONAL FINDINGS: None. IMPRESSION: No significant sonographic abnormality of the kidneys. Signer Name: Kit Rueda MD Signed: 03/10/2021 9:35 AM Workstation Name: [id number]
[2021-03-10] MEDS ORDERED: cefTRIAXone/NS 1 GM/50 ML 1 GM/50 ML BAG IV SCH (10:00)
[2021-03-10] MEDS ORDERED: ENOXAPARIN 30 MG/0.3 ML INJ SUB-Q SCH (10:00)
[2021-03-10] MEDS ORDERED: NICOTINE 14 MG/24 HR PATCH TD SCH (10:00)
[2021-03-10] MEDS ORDERED: ENOXAPARIN 40 MG/0.4 ML INJ SUB-Q SCH (10:00)
[2021-03-10] MEDS ORDERED: FUROSEMIDE 40 MG/4 ML INJ IV SCH (10:00)
--- NOTE | 2021-03-10 10:23 | Consultation ---
History of Present Illness - Reason for Consult Consult date: 03/10/21 acute renal failure - History of Present Illness The patient is a 45 YO female patient with history significant for ongoing tobacco use who presented to [facility] ED with worsening shortness of breath of 2 to 3 days duration worse since last night. Pt denies chest pain, nausea, vomiting, abdominal pain, orthopnea, PND, dysuria, hematuria, kidney stone, leg swelling or NSAID intake. She was found to be in severe hypoxia with O2 sats in 60s. Patient received supplemental oxygen, high-dose Solu-Medrol, magnesium and albuterol nebulizer. Patient has not seen any physician and not on any medication. Initial evaluation in the ED showed severe hypoxemia requiring BiPAP, very high blood sugars, acute kidney injury, elevated BNP and elevated troponins. Chest x-ray showed bilateral basilar opacities/pneumonia versus CHF and VQ scan showed low probability for PE. Labs significant for Creat 2.4 and BUN 27. Nephrology was consulted for evaluation and treatment of JOSE R. Past History Past Medical History: No medical history, other (Patient denies any medical history). denies: diabetes, hypertension Past Surgical History: No surgical history, Other (Denies any surgical history) Social history: smoking. denies: alcohol abuse, prescription drug abuse Family history: hypertension Medications and Allergies Allergies Allergy/AdvReac Type Severity Reaction Status Date / Time No Known Allergies Allergy Verified 03/09/21 06:48 Home Medications Medication Instructions Recorded Confirmed Last Taken Type No Known Home Medications [No 03/09/21 03/09/21 Unknown History Reported Home Medications] Active Meds: Active Medications Albuterol (Albuterol 2.5 Mg/3 Ml Nebu) 2.5 mg IH Q4HRT PRN PRN Reason: Shortness Of Breath Aspirin (Aspirin Ec 325 Mg Tab) 325 mg PO [facility]DAY [facility] Last Admin: 03/09/21 16:12 Dose: 325 mg Documented by: Atorvastatin Calcium (Atorvastatin 40 Mg Tab) 80 mg PO QHS [facility] Last Admin: 03/09/21 23:01 Dose: 80 mg Documented by: Enoxaparin Sodium (Enoxaparin 40 Mg/0.4 Ml Inj) 40 mg SUB-Q QDAY@1000 [facility] Furosemide (Furosemide 40 Mg/4 Ml Inj) 40 mg IV QDAY [facility] Azithromycin (Zithromax/Ns) 500 mg in 250 mls @ 250 mls/hr IV Q24H [facility] Ceftriaxone Sodium (Rocephin/Ns 1 Gm/50 Ml) 1 gm in 50 mls @ 100 mls/hr IV Q24H [facility]; Protocol Insulin Human Isoph/Insulin Regular (Insulin Nph/Regular 70/30 Inj) 14 unit SUB-Q BIDDIAB [facility] Insulin Human Lispro (Insulin Lispro 100 Unit/Ml) 0 unit SUB-Q ACHS SHAKIRA; Protocol Last Admin: 03/09/21 23:03 Dose: 4 unit Documented by: Metoprolol Tartrate (Metoprolol Tartrate 25 Mg Tab) 25 mg PO BID [facility] Last Admin: 03/09/21 23:02 Dose: 25 mg Documented by: Morphine Sulfate (Morphine 2 Mg/1 Ml Inj) 2 mg IV Q4H PRN PRN Reason: Pain, Moderate (4-6) Nicotine (Nicotine 14 Mg/24 Hr Patch) 14 mg TD QDAY [facility] Nitroglycerin (Nitroglycerin 0.4 Mg Tab Subl) 0.4 mg SL .Q5MIN PRN PRN Reason: Chest Pain Review of Systems Constitutional: no weight loss, no weight gain, no fever, no chills, no anorexia, no weakness, no poor appetite Breasts: deferred Cardiovascular: shortness of breath, dyspnea on exertion, no chest pain, no orthopnea, no edema, no syncope, no lightheadedness, no high blood pressure, no leg edema Respiratory: shortness of breath, no cough, no hemoptysis Gastrointestinal: no abdominal pain, no nausea, no vomiting, no diarrhea, no BRBPR, no melena Genitourinary Female: no dysuria, no hematuria Integumentary: no rash Neurological: no convulsions, no aphasia, no change in speech, no change in mentation, no confusion, no memory loss Exam - Vital Signs Vital signs: Vital Signs Pulse Ox 72 L 03/09/21 06:24 Results - Lab Results 03/09/21 06:46 03/10/21 07:22 Most recent lab results ABG pH 7.324 pH Units (7.350-7.450) L 03/09/21 09:04 ABG pCO2 34.8 mm Hg 03/09/21 09:04 ABG pO2 298.4 mm Hg (80.0-90.0) H 03/09/21 09:04 ABG HCO3 17.7 mmol/L (20.0-26.0) L 03/09/21 09:04 ABG O2 Saturation 99.5 % (95.0-99.0) H 03/09/21 09:04 Calcium 9.1 mg/dL (8.4-10.2) 03/10/21 07:22 Magnesium 2.60 mg/dL (1.7-2.3) H 03/10/21 07:22 Assessment and Plan 1. Acute kidney injury vs CKD: Patient presented with elevated creatinine level. Baseline renal function is unknown. Renal US negative. Urine studies ordered. Monitor renal function. Creatinine level is same as yesterday. Renal prognosis is guarded. Avoid nephrotoxic agents. Meds dosage based on GFR. 2. FEN: Hypokalemia, replete K as needed. Metabolic acidosis, monitor. Monitor lytes. 3. Acute respiratory failure with hypoxia: Pneumonia or CHF or both. Elevated D-dimer, VQ scan low probability for PE. Requiring BiPAP. Covid test ordered. Empiric antibiotics, bronchodilators and supportive care. 4. Non-ST elevation DE: Trend Troponin. Echocardiogram for LV function ejection fraction. Followed by Cards. 5. New onset diabetes mellitus / hyperglycemia: Accu-Chek, SSI, Long-acting insulin Novolin 70/30. A1c 7.8. ADA diet. 6. Uncontrolled Hypertension: Monitor BP. Adjust meds. Subjective: Patient was seen and examined at the bedside. Examination: General appearance: well-developed, this built, appears stated age, no distress HEENT: ATNC, HOLLY Neck: trachea midline Respiratory: Clear to Auscultation Heart: regular, S1S2, no murmur Gastrointestinal: soft, normoactive bowel sounds, not tender Integumentary: no obvious rash Neurologic: alert, follows command, able to move extremities Ext: no edema
[2021-03-10] MEDS: INSULIN LISPRO 100 UNIT/ML SUB-Q SCH ×3 (10:43→17:05)
[2021-03-10] MEDS: INSULIN NPH/REGULAR 70/30 INJ SUB-Q SCH ×2 (10:44→17:05)
[2021-03-10] MEDS: ASPIRIN EC 325 MG TAB PO SCH (10:45)
[2021-03-10] MEDS: METOPROLOL TARTRATE 25 MG TAB PO SCH (10:46)
--- NOTE | 2021-03-10 11:21 | Progress Note ---
Assessment and Plan Acute respiratory failure with hypoxia * D-dimer is elevated, VQ scan has low suspicion for PTE * Leukocytosis. Patient received J&J vaccine on 02/16/2021. Patient is admitted as a Covid PUI, PCR is pending. Blood cultures, procalcitonin is pending. Patient has been started on empiric antibiotics. NSTEMI suspect type II in setting of JOSE R and hyperglycemia * Patient denies any chest pain. Twelve-lead reviewed sinus tach 112 with suspected LVH, no acute ischemic changes. Troponin is elevated , subacute nonspecific but trending upwards. Plan for Lexiscan MPI stress test in a.m. N.p.o. after midnight * Echocardiogram is pending * Continue current antihypertensive regimen * Patient nearing euvolemia. Discontinue diuretics in setting of JOSE R Tobacco use * Cessation encouraged DVT prophylaxis * Heparin SQ Stress test in a.m. n.p.o. after midnight. Echo pending. we will follow This patient was seen in conjunction with Dr Vann who agrees with this assessment and plan of care - Patient Problems (1) Acute kidney injury Current Visit: Yes Status: Acute (2) NSTEMI (non-ST elevated myocardial infarction) Current Visit: Yes Status: Acute (3) Tobacco use Current Visit: Yes Status: Chronic (4) Leukocytosis Current Visit: Yes Status: Acute (5) Acute hypoxemic respiratory failure Current Visit: Yes Status: Acute (6) Hyperglycemia Current Visit: Yes Status: Acute Subjective Date of service: 03/10/21 Principal diagnosis: Acute Respiratory Failure Interval history: Patient resting comfortably in bed. No shortness of breath or chest pain overnight Telemetry reviewed: Sinus rhythm 93. No events Objective Last Vital Signs Temp Pulse 98 H 03/09/21 23:02 Resp 18 03/10/21 00:14 BP 127/75 03/09/21 22:03 Pulse Ox 98 03/09/21 22:03 - Physical Examination HEENT: Positive: PERRL, Normocephaly, Mucus Membranes Moist Neck: Positive: neck supple, trachea midline Cardiac: Positive: Reg Rate and Rhythm, S1/S2 Lungs: Positive: Normal Exam, Normal Breath Sounds Neuro: Positive: Grossly Intact Abdomen: Positive: Unremarkable, Soft Skin: Negative: Rash, Wound Extremities: Present: upper extr. pulses, lower extr. pulses, edema (Trace bilateral lower extremity edema) - Labs and Meds Cardiac Enzymes 03/09/21 Range/Units 16:54 CK-MB (CK-2) 10.0 H (0.0-4.0) ng/mL Comprehensive Metabolic Panel 03/10/21 Range/Units 07:22 Sodium 142 (137-145) mmol/L Potassium 4.4 D (3.6-5.0) mmol/L Chloride 106.2 (98-107) mmol/L Carbon Dioxide 22 (22-30) mmol/L BUN 32 H (7-17) mg/dL Creatinine 2.7 H (0.6-1.2) mg/dL Glucose 89 (65-100) mg/dL Calcium 9.1 (8.4-10.2) mg/dL - Imaging and Cardiology EKG: report reviewed, image reviewed Nuclear stress test: pending Echo: pending - Telemetry EKG Rhythm: Sinus Rhythm - EKG Sinus rhythms and dysrhythmias: sinus tachycardia
--- NOTE | 2021-03-10 17:25 | Discharge Summary ---
Providers - Providers Date of Admission: 03/09/21 08:34 Date of discharge: 03/10/21 Attending physician: RICHARD PLAZA 03/09/21 14:41 Consult to Physician [CONS] Routine Comment: Consulting Provider: SREEDHAR PALMER Physician Instructions: Reason For Exam: Non-ST elevation VA/CHF 03/09/21 14:55 Consult to Physician [CONS] Routine Comment: Consulting Provider: NASRIN GODINEZ Physician Instructions: Reason For Exam: Acute kidney injury Primary care physician: WIRE [employer]PERATOR Hospitalization Reason for admission: Worsening shortness of breath. Non-ST elevation VA Condition: Serious Pertinent studies: Renal ultrasound Echocardiogram chest x-ray VQ scan Hospital course: 45-year-old obese female patient was admitted through emergency room with acute hypoxic respiratory failure requiring BiPAP, slowly improving, non-ST elevation VA with worsening cardiac enzymes evaluated by cardiology, possible CHF on antifailure medications Echo pending, type II diabetes mellitus with HA1C of 7.3 noncompliant with medications, dyslipidemia, acute kidney injury, leukocytosis and ongoing tobacco use, was admitted through emergency room with worsening shortness of breath and generalized weakness Patient is being managed appropriately evaluated by nephrology medications optimized evaluated by cardiology medications optimized and scheduled for stress test tomorrow. Symptoms are slowly improving however patient suddenly decided to leave AGAINST MEDICAL ADVICE, risks and con sequences and complications of leaving AGAINST MEDICAL ADVICE including worsening of her symptoms, and complications of underlying medical problems that may lead to permanent disability even I explained this to the patient today morning when she was wanting to leave patient agreed to stay 1 more night however this afternoon patient wanted to leave AMA signed the necessary papers and left the hospital . Please refer to the detailed progress note of today 03/10/2021 from the details Patient left AMA Disposition: [id number] LEFT AGAINST MED ADVICE Final Discharge Diagnosis (Prints w/discharge instructions): Acute hypoxic respiratory failure. Non-ST elevation VA. CHF. Obesity BMI 34.8. Type 2 diabetes mellitus new onset. Dyslipidemia. Acute kidney injury. Ongoing tobacco use. Leukocytosis. Medical noncompliance Time spent for discharge: 35 Core Measure Documentation - Palliative Care Palliative Care/ Comfort Measures: Not Applicable - Core Measures Any of the following diagnoses?: none Exam - Constitutional Vitals: Temp Pulse Resp BP Pulse Ox 98.2 F 90 22 133/77 99 03/10/21 11:48 03/10/21 11:48 03/10/21 11:48 03/10/21 11:48 03/10/21 11:48 General appearance: Present: mild distress, well-nourished, obese - EENT Eyes: Present: PERRL, EOM intact - Neck Neck: Present: supple, normal ROM - Respiratory Respiratory effort: normal Respiratory: bilateral: diminished, rales, negative: rhonchi, wheezing - Cardiovascular Rhythm: regular Heart Sounds: Present: S1 & S2 - Extremities Extremities: no ischemia Extremity abnormal: edema - Abdominal General gastrointestinal: Present: soft, non-tender, non-distended, normal bowel sounds - Integumentary Integumentary: Present: clear, warm - Musculoskeletal Musculoskeletal: strength equal bilaterally, generalized weakness - Psychiatric Psychiatric: cooperative - Neurologic Neurologic: moves all extremities Plan Additional Instructions: Patient left AMA Follow up with: PRIMARY CARE, [Primary Care Provider] - 7 Days
[2021-03-10 18:08] VITALS: BP 132/83
[2021-03-11] MEDS ORDERED: cefTRIAXone/NS 2 GM/100 ML 2 GM/100 ML BAG IV SCH (10:00)
[2021-03-11] MEDS ORDERED: ENOXAPARIN 30 MG/0.3 ML INJ SUB-Q SCH (10:00)
== END 2021-03-10 17:01 | disposition left against medical advice (07) | DRG 280 ==
LOC: ED 06:10 → IMCU 08:34 → 3A 15:04
PROVIDERS: ADMIT Internal Medicine; ATTEND Internal Medicine
PROC: 5A09357 Assistance with Respiratory Ventilation, Less than 24 Consecutive Hours, Continuous Positive Airway Pressure (ICD-10-PCS; principal; 2021-03-09)
PROC: 4A033R1 Measurement of Arterial Saturation, Peripheral, Percutaneous Approach (ICD-10-PCS; 2021-03-09)
DX: I21.4 Non-ST elevation (NSTEMI) myocardial infarction (principal); J96.01 Acute respiratory failure with hypoxia; J18.9 Pneumonia, unspecified organism; N17.0 Acute kidney failure with tubular necrosis; Z20.822 Contact with and (suspected) exposure to COVID-19; E87.6 Hypokalemia; E87.2 Acidosis; G47.33 Obstructive sleep apnea (adult) (pediatric); E11.65 Type 2 diabetes mellitus with hyperglycemia; F17.210 Nicotine dependence, cigarettes, uncomplicated; I16.0 Hypertensive urgency; Z53.29 Procedure and treatment not carried out because of patient's decision for other reasons; E78.5 Hyperlipidemia, unspecified; I50.9 Heart failure, unspecified; E66.9 Obesity, unspecified; Z68.34 Body mass index [BMI] 34.0-34.9, adult; Z91.14 Patient's other noncompliance with medication regimen; Z82.49 Family history of ischemic heart disease and other diseases of the circulatory system; Z71.6 Tobacco abuse counseling; Z79.899 Other long term (current) drug therapy
CPT/HCPCS: 36415; 71045; 76770; 78580; 80048; 80053; 80061; 82550; 82553; 82803; 82962; 83036; 83735; 83880; 83970; 84145; 84484; 85025; 85379; 85610; 87040; 93005; 93306; 96365; 96366; 96367; 96372; 96375; G0378; A9270-GY; A9540; J0456; J0696; J1650; J1815; J1940; J2060; J3480; U0003